=== PATIENT | male | born 1975 | race Caucasian/White ===

== ENCOUNTER 2017-08-01 18:41 | Emergency (ER) | payer SELFPAY ==
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
[2017-08-01 20:50] VITALS: BP 110/58; PULSE 92; O2SAT 97
--- NOTE | 2017-08-02 09:18 | XRAY ---
Indication: Pain following fall. Comparison: None 3 views of the right knee demonstrates minimal lateral joint space narrowing. No other bony, articular, or soft tissue abnormalities.
== END 2017-08-01 20:51 | disposition home or self-care (01) ==
LOC: ED 18:41
DX: S80.01XA Contusion of right knee, initial encounter (principal); S80.212A Abrasion, left knee, initial encounter; S80.211A Abrasion, right knee, initial encounter; Y35.893A Legal intervention involving other specified means, suspect injured, initial encounter
CPT/HCPCS: 51702; 73562; 80307; 99283; 99284

== ENCOUNTER 2019-09-29 22:59 | Emergency (ER) | payer SELFPAY ==
[2019-09-29 23:30] LABS: Absolute Neutrophil Ct (ANC) 3.69 (1.4-6.9); BASOPHIL % 0.2 % (0.0-0.4); Basophil (Absolute #) 0.01 (0-0.4); Eosinophil % 0.9 % (0.00-5.0); Eosinophil (Absolute #) 0.05 (0-0.5); Hemoglobin 15.5 gm/dl (12.5-18.0); Lymphocyte (Absolute #) 1.49 (1.0-4.6); Lymphocytes % 26.1 % (24.0-44.0); Mean Cell Volume 94.5 fl (78-100); Mean Corpuscular Hemoglobin 32.6 pg (26-32); Mean Corpuscular Hgb Concent. 34.4 g/dl (32-36); Mean Platelet Volume 10.6 fl (6-9.5); Monocyte (Absolute #) 0.46 (0.0-1.3); Monocytes % 8.1 % (0.0-12.0); Neutrophil % 64.7 % (36.0-66.0); Platelet Count 163 K/mm3 (150-450); Red Blood Count 4.76 M/mm3 (4.1-5.6); Red Cell Distribution Width 12.9 % (11.5-14.0); White Blood Count 5.7 K/mm3 (4.0-10.5)
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
[2019-09-29 23:44] LABS: ALBUMIN 4.7 g/dL (3.5-5.0); ALKALINE PHOSPHATASE 53 U/L (38-126); ANION GAP 48.7 MEQ/L (5-15); BLOOD UREA NITROGEN 14 mg/dL (9-20); CHLORIDE 107 mmol/L (98-107); Calcium 10.2 mg/dL (8.4-10.2); Carbon Dioxide 24 mmol/L (22-30); Creatinine 1 0.93 mg/dL (0.66-1.25); Glucose 95 mg/dL (74-106); Potassium 3.7 mmol/L (3.5-5.1); SGOT/AST 53 U/L (17-59); SGPT/ALT 21 U/L (0-50); Total Protein 8.3 g/dL (6.3-8.2)
[2019-09-29 23:54] LABS: ACETAMINOPHEN < 10 ug/ml (10-30); ETHYL ALCOHOL < 10 mg/dL (0-10); SALICYLATE < 1.0 mg/dL (2-20); SODIUM 176 mmol/L (137-145)
[2019-09-30 00:12] VITALS: O2SAT 99
[2019-09-30 00:19] LABS: ANION GAP 12.1 MEQ/L (5-15); BLOOD UREA NITROGEN 13 mg/dL (9-20); CHLORIDE 108 mmol/L (98-107); Calcium 9.8 mg/dL (8.4-10.2); Carbon Dioxide 24 mmol/L (22-30); Creatinine 1 0.89 mg/dL (0.66-1.25); Glucose 93 mg/dL (74-106); Potassium 3.6 mmol/L (3.5-5.1); SODIUM 140 mmol/L (137-145)
[2019-09-30 01:28] LABS: Appearance CLEAR (CLEAR); Bilirubin NEGATIVE (NEGATIVE); Blood NEGATIVE Ery/ul (0-5); Glucose NEGATIVE (NEGATIVE); Ketones SMALL (NEGATIVE); Leukocyte Esterase NEGATIVE (NEGATIVE); Mucus SLIGHT /HPF (NEGATIVE); Nitrite NEGATIVE (NEGATIVE); Protein,Urine Dip 30 (Negative); Specific Gravity 1.019 (1.005-1.025); Urobilinogen 4 mg/dL (0-1)
[2019-09-30 01:39] LABS: Barbiturate,Urine NEGATIVE (NEGATIVE); Benzodiazepine,Urine NEGATIVE (NEGATIVE); Cocaine,Urine NEGATIVE (NEGATIVE); Methadone,Urine NEGATIVE (NEGATIVE); Opiate,Urine NEGATIVE (NEGATIVE); PCP,Urine NEGATIVE (NEGATIVE); THC,Urine NEGATIVE (NEGATIVE)
[2019-09-30 02:13] LABS: Amphetamine,Urine POSITIVE (NEGATIVE)
[2019-09-30 02:31] VITALS: BP 143/75; PULSE 107
== END 2019-09-30 02:32 ==
LOC: ED 22:59
DX: Z02.89 Encounter for other administrative examinations (principal); F19.10 Other psychoactive substance abuse, uncomplicated; R03.0 Elevated blood-pressure reading, without diagnosis of hypertension
CPT/HCPCS: 36415; 80048; 80053; 80178; 80307; 81001; 83735; 84484; 85025; 93005; 99284; G0481; G0480